=== PATIENT | female | born 1945 | race Caucasian/White ===

== ENCOUNTER → 2018-05-15 | Outpatient (CLI) | payer MEDICARE, OTHER ==
[~2018-05-15] MED LIST: ALLO100 PO; ALUMAGSIMA PO; AMLO5 PO; AMOCLA875 PO; AREDS EYE SUPPLEMENT; AREDS PO; ASPI81CH; ASPI81CH PO; ASPI81EC; ASPI81EC PO; ATOR20 PO; ATOR80 PO; AZILSARTAN PO; CALGLU500; CEPH500 PO; CHOL10002 PO; CHONDROITIN PO; CLOBETTC TP; CLON.2 PO; CLON.3 PO; CLOP75 PO; Calcitriol0.25 MCG PO; EDARBI; ERGO400 PO; FISH1000 PO; FURO40 PO; GLIM4 PO; GLUCOSAMINE PO; HYDCHL25 PO; Humalog100 UNIT/1; INSULANI SUBQ; INSULANPEN SC; IRBE150 PO; IRBE75; ISOMON60ER PO; Isosorbide Mono60 MG PO; LEVSOD25 PO; LIRA0.6P; LISHYD2025; LISI20 PO; LOSA50 PO; METF500 PO; METO25 PO; METO50 PO; MULVITA; MULVITA PO; MULVITMIND PO; MULVITMINF PO; Metoprolol Tart50 MG PO; PANT40 PO; PIOG15; POLY500 PO; Plavix75 MG PO; SYNTHROID25 MCG PO; WARF2.5 PO; WARF5 PO; [UNRECOGNIZED DRUG - OTHER]; [UNRECOGNIZED DRUG - OTHER] PO
[2018-05-15 13:03] LABS: Free Thyroxine 1.07 ng/dL (0.70-1.60)
[2018-05-15 13:21] LABS: Thyroid Stimulating Hormone 1.82 uIU/mL (0.360-4.800)
== END ==
LOC: LAB 12:27 → LAB SHORT 12:27
PROVIDERS: Internal Medicine Hematology & Oncology
DX: D51.8 Other vitamin B12 deficiency anemias (principal); E04.1 Nontoxic single thyroid nodule; E03.9 Hypothyroidism, unspecified; D50.9 Iron deficiency anemia, unspecified
CPT/HCPCS: 82607; 82746; 83540; 83550; 84439; 84443

== ENCOUNTER → 2018-06-22 | Outpatient (CLI) | payer MEDICARE, OTHER | LOC: LAB SHORT 13:04 → LAB EV 13:04 | DX: M79.644 Pain in right finger(s) (principal) | CPT/HCPCS: 84550 ==

== ENCOUNTER 2018-10-20 22:18 | Inpatient (IN) | payer MEDICARE, OTHER ==
[~2018-10-20] VITALS: Ht 162.6 cm; Wt 101.3 kg
[~2018-10-20 22:18] MED LIST changes: -ATOR20 PO; +CLON.1 PO; -CLON.2 PO; +Metoprolol Tar100 MG PO; -Metoprolol Tart50 MG PO
[2018-10-20] MEDS ORDERED: TRADJENTA5 MG PO (22:41)
[2018-10-20] MEDS ORDERED: WARF4 PO (22:41)
[2018-10-20] MEDS ORDERED: Novolog100 UNIT/2 SC (22:42)
[2018-10-20] MEDS ORDERED: RAYALDEE30 MCG PO (22:45)
[2018-10-20 22:57] LABS: BASOPHILS ABSOLUTE AUTO 0.03 K/mm3 (0.00-0.23); BASOPHILS PERCENT AUTO 0 % (0-2); EOSINOPHILS ABSOLUTE AUTO 0.08 K/mm3 (0.00-0.68); EOSINOPHILS PERCENT AUTO 1 % (0-6); Hemoglobin 11.9 g/dL (11.5-16.0); IMMATURE GRAN ABSOLUTE AUTO 0.06 K/mm3 (0.00-0.10); IMMATURE GRAN PERCENT AUTO 1 % (0-1); LYMPHOCYTES ABSOLUTE AUTO 0.51 K/mm3 (0.84-5.20); LYMPHOCYTES PERCENT AUTO 4 % (21-46); MONOCYTES PERCENT AUTO 6 % (4-13); Mean Corpuscular HGB Conc 32.2 g/dL (31.5-36.5); Mean Corpuscular Volume 100 fL (80-100); Mean Platelet Volume 10.4 fL (9.1-12.4); NEUTROPHILS ABSOLUTE AUTO 11.28 K/mm3 (1.96-9.15); NEUTROPHILS PERCENT AUTO 89 % (41-73); Platelet Count 195 K/mm3 (150-400); RDW Coefficient Variation 14.5 % (11.7-14.2); RDW Standard Deviation 52.5 fL (35.1-46.3); Red Blood Cell Count 3.72 M/mm3 (3.80-5.20); White Blood Cell Count 12.66 K/mm3 (4.00-11.30)
[2018-10-20 23:04] LABS: Source, Urine Catheter
[2018-10-20 23:07] LABS: Appearance, Urine Hazy (Clear); Bilirubin, Urine Neg (Neg); Blood, Urine 3+ (Neg); Color, Urine Yellow (P-Yellow); Glucose Qualitative, Urine Neg (Neg); Ketones, Urine Neg (Neg); Leukocyte Esterase, Urine 3+ (Neg); Nitrite, Urine Pos (Neg); Protein, Urine 3+ (Neg); Urobilinogen, Urine NORM (Normal)
[2018-10-20 23:12] LABS: Bacteria Many /hpf; Red Blood Cells, Urine 0-2 /hpf (0-2); Squamous Epithelial Cells Rare /hpf (Few); White Blood Cells, Urine TNTC /hpf (0-5)
[2018-10-20 23:18] LABS: Albumin, Blood 3.2 g/dL (3.4-5.0); Albumin/Globulin Ratio 0.7 (0.8-1.8); Bilirubin, Total 0.6 mg/dL (0.1-1.0); Calcium, Blood 8.2 mg/dL (8.5-10.1); Creatinine, Blood 1.25 mg/dL (0.40-1.00); Globulin, Blood 4.6 g/dL (2.2-4.0); Potassium, Blood 4.3 mmol/L (3.5-5.5); Total Protein, Blood 7.8 g/dL (6.4-8.2)
[2018-10-21] MEDS ORDERED: INSULANPEN SC (03:08)
[2018-10-21 04:58] LABS: BASOPHILS ABSOLUTE AUTO 0.02 K/mm3 (0.00-0.23); BASOPHILS PERCENT AUTO 0 % (0-2); EOSINOPHILS ABSOLUTE AUTO 0.01 K/mm3 (0.00-0.68); EOSINOPHILS PERCENT AUTO 0 % (0-6); Hematocrit 32.3 % (33.0-51.0); Hemoglobin 10.3 g/dL (11.5-16.0); IMMATURE GRAN PERCENT AUTO 1 % (0-1); LYMPHOCYTES PERCENT AUTO 7 % (21-46); MONOCYTES ABSOLUTE AUTO 1.12 K/mm3 (0.16-1.47); MONOCYTES PERCENT AUTO 7 % (4-13); Mean Corpuscular HGB 31.6 pg (26.0-34.0); Mean Corpuscular HGB Conc 31.9 g/dL (31.5-36.5); Mean Corpuscular Volume 99 fL (80-100); Mean Platelet Volume 10.5 fL (9.1-12.4); NEUTROPHILS ABSOLUTE AUTO 13.88 K/mm3 (1.96-9.15); NEUTROPHILS PERCENT AUTO 85 % (41-73); Platelet Count 166 K/mm3 (150-400); RDW Coefficient Variation 14.6 % (11.7-14.2); RDW Standard Deviation 53.5 fL (35.1-46.3); Red Blood Cell Count 3.26 M/mm3 (3.80-5.20); White Blood Cell Count 16.33 K/mm3 (4.00-11.30)
--- NOTE | 2018-10-21 05:08 | NUR ---
LANTUS HAS ONLY JUST ARRIVED FROM PHARMACY SO PLAN TO HOLD HS LANTUS DOSE OF 50 UNITS D/T AM DOSE OF 10 UNITS BEING DUE AT 0730. PHARMACY IS ALSO QUESTIONING ACCURACY OF ORDER SO PLAN TO HAVE DAY RN F/U W/PT'S AND/OR HOME PHARMACY FOR FURTHER CLARIFICATION.
--- NOTE | 2018-10-21 05:17 | NUR ---
ER T/F AND SUMMARY: PT T/F VIA W/C TO ROOM 308 AT 0255. SHE T/F'D SELF TO BED AND WAS NOTED TO GET MILDLY SOB W/EXERTION. SHE'S ADMITTED W/UTI AND PROBABLE UROSEPSIS W/NEUROGENIC BLADDER AT BASELINE. SHE LACKS SENSATION AND SO UTI SYMPTOMS ARE DIFFICULT TO DECIPHER. CONTACTED FOR NEW ORDERS. VEGAN ADA DIET COMMENCED BUT RECOMMENDED PT BE CONSERVATIVE W/PO INTAKE D/T HX CHF, NO FR ORDERED AT THIS TIME BUT DAY STAFF COULD F/U ON THIS. ATTENDS WERE CHANGED D/T PT ALWAYS "DRIBBLING" POST BLADDER RECONSTRUCTION FOLLOWING BLADDER CANCER. SHE ADMITS THAT ABDO FEELS DISTENDED AND SHE'S PASSING FLATUS BUT DENIED ABDO PAIN AND N/V. ROCEPHIN RECIEVED IN ER AND MD RX'D IT TO BE CONT'D DAILY. PT WAS SL UPON ARRIVAL BUT HAD 1L NS BOLUS IN ER COMPLETED. AM LABS RX'D, RESULTS PENDING. CBG'S STABLE AT 190'S-200'S AND INSULIN RX'D PER PT'S STATED HOME DOSES BUT PHARMACIST (FLACO COLES) Q'D ACCURACY. PT SEEMS TO BE ACCURATE HISTORIAN AND KNOW MEDS WELL BUT FURTHER CLARIFICATION IS RECOMMENDED, WILL ENSURE DAY RN AWARE. PT IS A/O, SBA TO BSC AND CALLS APPROPRIATELY. SHE HAS DENIED NEEDS/COMPLAINTS SINCE ADMISSION. VSS/AFEBRILE. WILL MONITOR AND REPORT TO DAY RN.
[2018-10-21 05:37] LABS: Bun/Creatinine Ratio 26.2 (12.0-20.0); Calcium, Blood 7.3 mg/dL (8.5-10.1); Creatinine, Blood 1.45 mg/dL (0.40-1.00); Potassium, Blood 4.4 mmol/L (3.5-5.5)
[2018-10-21] MEDS ORDERED: CYAN500 PO (09:56)
[2018-10-21] MEDS ORDERED: IRON150C PO (09:57)
[2018-10-21] MEDS ORDERED: VIT1CAPS12 PO (09:59)
[2018-10-21 10:30] LABS: International Normalized Ratio 2.66; Prothrombin Time Results 25.8 Sec (9.7-11.5)
--- NOTE | 2018-10-21 13:50 | NUR ---
PT GAVE VERBAL CONSENT FOR ME TO TREAT ON 10-22-2018.
--- NOTE | 2018-10-21 17:55 | NUR ---
ALERT, ORIENTED. STS FEELING BETTER TODAY. AMBULATORY IN ROOM TO BATHROOM. IV PATENT. PLEASANT. COOPERATIVE. UNLABORED RESPIRATIONS. AWARE OF POS BLD CULTURES. ABLE TO MAKE NEEDS KNOWN. BED IN LOW POSITION. CALL LIGHT WITHIN REACH.WILL CONTINUE TO MONITOR.
--- NOTE | 2018-10-22 04:34 | NUR ---
SUMMARY: A/OX4, CALLS APPROPRIATELY AND INDEPENDENT IN ROOM. PT ADMITS TO FEELING MUCH BETTER AND DENIES PAIN/SOB AND ALL OTHER COMPLAINTS. PT CHANGED ATTENDS AD SALLY FOR INCONTINENCE ISSUES POST BLADDER RECONSTRUCTION. SHE CONT'S SL BETWEEN DAILY IV ABX FOR UROSEPSIS. SHE TOLERATED HOME CPAP AT HS AND DOESN'T REQUIRE CONT BIOX PER ORDERS. NO ACUTE CHANGES, VSS AND AFEBRILE. WILL MONITOR AND REPORT TO DAY RN.
[2018-10-22 05:25] LABS: BASOPHILS ABSOLUTE AUTO 0.03 K/mm3 (0.00-0.23); BASOPHILS PERCENT AUTO 0 % (0-2); EOSINOPHILS ABSOLUTE AUTO 0.18 K/mm3 (0.00-0.68); EOSINOPHILS PERCENT AUTO 2 % (0-6); Hematocrit 34.6 % (33.0-51.0); Hemoglobin 10.9 g/dL (11.5-16.0); IMMATURE GRAN ABSOLUTE AUTO 0.04 K/mm3 (0.00-0.10); IMMATURE GRAN PERCENT AUTO 0 % (0-1); LYMPHOCYTES ABSOLUTE AUTO 1.15 K/mm3 (0.84-5.20); LYMPHOCYTES PERCENT AUTO 10 % (21-46); MONOCYTES ABSOLUTE AUTO 0.97 K/mm3 (0.16-1.47); MONOCYTES PERCENT AUTO 9 % (4-13); Mean Corpuscular HGB 32.2 pg (26.0-34.0); Mean Corpuscular HGB Conc 31.5 g/dL (31.5-36.5); Mean Corpuscular Volume 102 fL (80-100); Mean Platelet Volume 10.7 fL (9.1-12.4); NEUTROPHILS ABSOLUTE AUTO 8.78 K/mm3 (1.96-9.15); NEUTROPHILS PERCENT AUTO 79 % (41-73); Platelet Count 172 K/mm3 (150-400); RDW Coefficient Variation 14.8 % (11.7-14.2); RDW Standard Deviation 55.2 fL (35.1-46.3); Red Blood Cell Count 3.39 M/mm3 (3.80-5.20); White Blood Cell Count 11.15 K/mm3 (4.00-11.30)
[2018-10-22 05:38] LABS: International Normalized Ratio 2.69; Prothrombin Time Results 26.1 Sec (9.7-11.5)
[2018-10-22 05:50] LABS: Bun/Creatinine Ratio 27.7 (12.0-20.0); Calcium, Blood 8.3 mg/dL (8.5-10.1); Creatinine, Blood 1.3 mg/dL (0.40-1.00); Potassium, Blood 4.1 mmol/L (3.5-5.5)
--- NOTE | 2018-10-22 11:55 | NUR ---
Patient gave permission for me to care for her tomorrow 10/23/18
--- NOTE | 2018-10-22 18:19 | NUR ---
PATIENT ALERT AND ORIENTED. FEELING MUCH BETTER TODAY. PLEASANT. TALKATIVE. DENIES PAIN. UNLABORED RESPIRATIONS. VSS. IV PATENT. AMBULATORY W/STEADY GAIT IN ROOM. BED IN LOW POSITION. USES CALL LIGHT APPROPRIATELY. WILL CONTINUE TO MONITOR.
--- NOTE | 2018-10-23 03:37 | NUR ---
SHIFT SUMMARY PATIENT HAD NO ACUTE CHANGES OBSERVED DURING THE SHIFT. AXO X4 AND SBA TO BR. DENIES PAIN, SOB, AND N/V. PIV REMAINS INTACT. CBG 239. VSS/AFEBRILE. COOPERATIVE WITH CARE. REPORTS LIKING TO WATCH TV GAME SHOWS. HOME CPAP AND NO CONT BIOX PER ORDER. CALL LIGHT IN REACH. BED IN LOWEST POSITION. WILL CONTINUE TO MONITOR UNTIL DAY SHIFT NURSE ASSUMES CARE.
[2018-10-23 05:54] LABS: International Normalized Ratio 2.36; Prothrombin Time Results 23.1 Sec (9.7-11.5)
[2018-10-23] MEDS ORDERED: HUMALOG KW200 UNIT/1 (10:00)
[2018-10-23] MEDS ORDERED: LEVFLO500 PO (10:02)
--- NOTE | 2018-10-23 11:23 | NUR ---
DISCHARGE NOTE PATIENT EDUCATION GIVEN. VERBALIZED UNDERSTANDING. ALL QUESTIONS ANSWERED. IV ACCESS REMOVED CATHETER INTACT. LEAVING VIA PERSONAL CAR WITH . PATIENT REQUESTED TO WALK TO PERSONAL VEHICLE.
== END 2018-10-23 11:49 | disposition home or self-care (01) | DRG 872 ==
LOC: ER 22:18 → MEDS 10-21 02:28
PROVIDERS: Emergency Medicine; Hospitalist; ADMIT Family Medicine
DX: A41.51 Sepsis due to Escherichia coli [E. coli] (principal); N17.9 Acute kidney failure, unspecified; N30.01 Acute cystitis with hematuria; I13.0 Hypertensive heart and chronic kidney disease with heart failure and stage 1 through stage 4 chronic kidney disease, or unspecified chronic kidney disease; N39.0 Urinary tract infection, site not specified; R65.20 Severe sepsis without septic shock; E11.65 Type 2 diabetes mellitus with hyperglycemia; I50.9 Heart failure, unspecified; N18.9 Chronic kidney disease, unspecified; I48.91 Unspecified atrial fibrillation; I25.10 Atherosclerotic heart disease of native coronary artery without angina pectoris; E78.5 Hyperlipidemia, unspecified; E03.9 Hypothyroidism, unspecified; Z88.1 Allergy status to other antibiotic agents; Z88.5 Allergy status to narcotic agent; Z88.0 Allergy status to penicillin; Z79.01 Long term (current) use of anticoagulants; Z79.4 Long term (current) use of insulin; Z79.899 Other long term (current) drug therapy; Z86.73 Personal history of transient ischemic attack (TIA), and cerebral infarction without residual deficits; Z87.440 Personal history of urinary (tract) infections; Z87.891 Personal history of nicotine dependence
CPT/HCPCS: 36415; 51701; 71046; 80048; 80053; 81001; 82947; 83605; 85025; 85610; 87040; 87077; 87086; 87186; 94660; 94762; 96361; 96365; 99285-25; A9270; G0378; J0696; J7030; J7050

== ENCOUNTER → 2019-12-30 | Outpatient (CLI) | payer MEDICARE, OTHER ==
[~2019-12-30] MED LIST changes: +CYAN500 PO; +HUMALOG KW200 UNIT/1; +IRON150C PO; +LEVFLO500 PO; +Novolog100 UNIT/2 SC; +RAYALDEE30 MCG PO; +TRADJENTA5 MG PO; +VIT1CAPS12 PO; +WARF4 PO
[2019-12-30 15:32] LABS: Bun/Creatinine Ratio 25.4 (12.0-20.0); Creatinine, Blood 1.97 mg/dL (0.40-1.00)
== END | disposition home or self-care (01) ==
LOC: LAB SHORT 13:57 → LAB 13:57
PROVIDERS: Hospitalist
DX: E11.51 Type 2 diabetes mellitus with diabetic peripheral angiopathy without gangrene (principal); N25.9 Disorder resulting from impaired renal tubular function, unspecified; I10 Essential (primary) hypertension
CPT/HCPCS: 80048; 83036

== ENCOUNTER 2020-03-10 06:12 | Day surgery (SDC) | payer MEDICARE, OTHER ==
[~2020-03-10] VITALS: Ht 162.6 cm; Wt 100.0 kg
[~2020-03-10 06:12] MED LIST changes: +COLCRYS0.6 M1 PO; +FLAXSEED PO; +NITR.4SL SL
--- NOTE | 2020-03-10 08:35 | NUR ---
PT DISCHARGE INSTRUCTIONS FAXED TO [facility]. PT DIALYSIS CATHETER MAY BE USED FROM HERE ON OUT. PT SITE REMAINS CLEAR. NO BLEEDING NOTED.
--- NOTE | 2020-03-10 09:45 | NUR ---
PT SUTURES REMOVED FROM TOP R IJ SITE. NEW DOT DRESSING APPLIED. NO BLEEDING NOTED. VSS. NADN. PT DENIES NEEDS. CALL LIGHT WITHIN REACH.
--- NOTE | 2020-03-10 10:19 | NUR ---
PT DRESSES SELF WITH MINIMAL ASSISTANCE. PT VERBALIZES UNDERSTANDING WRITTEN AND VERBAL ORDERS. SITE REMAINS CLEAR. GREGORION. VSS. PT ESCORTED OUT TO WAITING AREA VIA S/O BY JAROCHO.
== END 2020-03-10 10:25 | disposition home or self-care (01) ==
LOC: MHTC 06:12
DX: I12.0 Hypertensive chronic kidney disease with stage 5 chronic kidney disease or end stage renal disease (principal); E11.22 Type 2 diabetes mellitus with diabetic chronic kidney disease; N18.6 End stage renal disease; Z87.891 Personal history of nicotine dependence; E78.5 Hyperlipidemia, unspecified; D63.1 Anemia in chronic kidney disease; E66.01 Morbid (severe) obesity due to excess calories; Z88.0 Allergy status to penicillin; Z88.5 Allergy status to narcotic agent; Z79.4 Long term (current) use of insulin; Z79.01 Long term (current) use of anticoagulants; Z79.899 Other long term (current) drug therapy; I48.91 Unspecified atrial fibrillation; Z86.73 Personal history of transient ischemic attack (TIA), and cerebral infarction without residual deficits; Z98.890 Other specified postprocedural states; Z85.51 Personal history of malignant neoplasm of bladder; Z68.39 Body mass index [BMI] 39.0-39.9, adult
CPT/HCPCS: 36558; 76937; 99152; C1750; C1769; C1894; J1644; J2250; J2405; J3010; J7030; J7040

== ENCOUNTER 2020-06-12 09:07 | Emergency (ER) | payer MEDICARE, OTHER ==
[~2020-06-12] VITALS: Ht 162.6 cm; Wt 100.7 kg
[~2020-06-12 09:07] MED LIST changes: +METO5 PO; +Midodrine HCl5 MG PO; +RANEXA500 MG PO; +RANOLAZINE ER1000 M1 PO; +TOUJEO MAX300 UNIT/2 SC
[2020-06-12 10:25] LABS: BASOPHILS ABSOLUTE AUTO 0.04 K/mm3 (0.00-0.23); BASOPHILS PERCENT AUTO 0 % (0-2); EOSINOPHILS ABSOLUTE AUTO 0.22 K/mm3 (0.00-0.68); EOSINOPHILS PERCENT AUTO 2 % (0-6); Hematocrit 30.2 % (33.0-51.0); Hemoglobin 9.6 g/dL (11.5-16.0); IMMATURE GRAN ABSOLUTE AUTO 0.08 K/mm3 (0.00-0.10); IMMATURE GRAN PERCENT AUTO 1 % (0-1); LYMPHOCYTES ABSOLUTE AUTO 1.13 K/mm3 (0.84-5.20); LYMPHOCYTES PERCENT AUTO 10 % (21-46); MONOCYTES ABSOLUTE AUTO 1.13 K/mm3 (0.16-1.47); MONOCYTES PERCENT AUTO 10 % (4-13); Mean Corpuscular HGB 31.2 pg (26.0-34.0); Mean Corpuscular HGB Conc 31.8 g/dL (31.5-36.5); Mean Corpuscular Volume 98 fL (80-100); Mean Platelet Volume 10.9 fL (9.1-12.4); NEUTROPHILS PERCENT AUTO 78 % (41-73); Platelet Count 196 K/mm3 (150-400); RDW Coefficient Variation 16.4 % (11.7-14.2); RDW Standard Deviation 58.2 fL (35.1-46.3); Red Blood Cell Count 3.08 M/mm3 (3.80-5.20)
[2020-06-12 10:44] LABS: Albumin, Blood 2.7 g/dL (3.4-5.0); Albumin/Globulin Ratio 0.5 (0.8-1.8); Bilirubin, Total 0.7 mg/dL (0.1-1.0); Bun/Creatinine Ratio 23.8 (12.0-20.0); Creatinine, Blood 2.77 mg/dL (0.40-1.00); Potassium, Blood 3.6 mmol/L (3.5-5.5); Total Protein, Blood 7.7 g/dL (6.4-8.2)
[2020-06-12 10:59] LABS: Calcium, Blood 5.7 mg/dL (8.5-10.1)
--- NOTE | 2020-06-12 13:05 | NUR ---
DIALYSIS - ED CALLED TO ED TO CHECK A PERMACATH THAT IS BLEEDING AND THE CUFF IS COMPLETELY OUT. CLEANED REDRESSED AND TAPED IT DOWN WELL. THE VENOUS PORT ASPIRATES REALLY WELL. THE ART DOES NOT. BUT IT DOES FLUSH VERY WELL. SO DIALYSIS CAN BE DONE USING THE PORT. INSTRUCTED HER AND THAT IF IT FALLS OUT, IT IS NOT AN EMERGENCY UNLESS IT IS BLEEDING. ALSO TOLD HER TO KEEP IT CLEAN WITH A DRESSING TO PREVENT INFECTION. SHE HAS AN APPT WITH DR ROCHA SATURDAY FOR A FISTULA PLACEMENT. TOLD HER TO CONTACT [facility] TO MAKE SURE DR ROCHA KNOWS HE SHOULD ALSO REPLACE THE PERMACATH.
--- NOTE | 2020-06-12 13:17 | NUR ---
DIALYSIS-PD NOTIFIED DR CASE BY PHONE THAT THE PT'S PERMACATH NEEDS TO BE REPLACED. THAT IT DOES FUNCTION. THAT THE PT HAS AN APPT ON SAT WITH JOSEFINA FOR A FISTULA PLACEMENT AND FARTUN NEEDS TO LET HIM KNOW TO REPLACE THE CATH.
== END 2020-06-12 13:15 | disposition home or self-care (01) ==
LOC: ER 09:07
PROVIDERS: Emergency Medicine
DX: T82.42XA Displacement of vascular dialysis catheter, initial encounter (principal); E11.22 Type 2 diabetes mellitus with diabetic chronic kidney disease; N18.6 End stage renal disease; Z99.2 Dependence on renal dialysis; I48.91 Unspecified atrial fibrillation; E78.5 Hyperlipidemia, unspecified; I25.10 Atherosclerotic heart disease of native coronary artery without angina pectoris; E03.9 Hypothyroidism, unspecified; Z87.891 Personal history of nicotine dependence; Z88.0 Allergy status to penicillin; Z88.5 Allergy status to narcotic agent; Z79.4 Long term (current) use of insulin; Z79.899 Other long term (current) drug therapy; Z79.01 Long term (current) use of anticoagulants; Z79.02 Long term (current) use of antithrombotics/antiplatelets; Z86.73 Personal history of transient ischemic attack (TIA), and cerebral infarction without residual deficits
CPT/HCPCS: 36415; 71045; 80053; 85025; 96365; 96366; 99284-25; J7030

== ENCOUNTER 2020-06-20 12:06 | Emergency (ER) | payer MEDICARE, OTHER ==
[~2020-06-20] VITALS: Ht 162.6 cm; Wt 99.8 kg
[2020-06-20 13:19] LABS: BASOPHILS ABSOLUTE AUTO 0.03 K/mm3 (0.00-0.23); BASOPHILS PERCENT AUTO 0 % (0-2); EOSINOPHILS ABSOLUTE AUTO 0.15 K/mm3 (0.00-0.68); EOSINOPHILS PERCENT AUTO 1 % (0-6); Hematocrit 31.7 % (33.0-51.0); IMMATURE GRAN PERCENT AUTO 1 % (0-1); LYMPHOCYTES ABSOLUTE AUTO 0.99 K/mm3 (0.84-5.20); LYMPHOCYTES PERCENT AUTO 7 % (21-46); MONOCYTES ABSOLUTE AUTO 1.14 K/mm3 (0.16-1.47); MONOCYTES PERCENT AUTO 8 % (4-13); Mean Corpuscular HGB 30.3 pg (26.0-34.0); Mean Corpuscular HGB Conc 31.5 g/dL (31.5-36.5); Mean Corpuscular Volume 96 fL (80-100); NEUTROPHILS ABSOLUTE AUTO 11.75 K/mm3 (1.96-9.15); NEUTROPHILS PERCENT AUTO 83 % (41-73); Platelet Count 259 K/mm3 (150-400); RDW Coefficient Variation 16.7 % (11.7-14.2); RDW Standard Deviation 59.1 fL (35.1-46.3); White Blood Cell Count 14.16 K/mm3 (4.00-11.30)
[2020-06-20 14:10] LABS: Albumin, Blood 2.5 g/dL (3.4-5.0); Albumin/Globulin Ratio 0.5 (0.8-1.8); Bilirubin, Total 0.8 mg/dL (0.1-1.0); Bun/Creatinine Ratio 20.2 (12.0-20.0); Calcium, Blood 5.1 mg/dL (8.5-10.1); Creatinine, Blood 2.57 mg/dL (0.40-1.00); Globulin, Blood 5.1 g/dL (2.2-4.0); Total Protein, Blood 7.6 g/dL (6.4-8.2)
== END 2020-06-20 16:36 | disposition home or self-care (01) ==
LOC: ER 12:06
PROVIDERS: Emergency Medicine
DX: E83.51 Hypocalcemia (principal); E87.6 Hypokalemia; I48.91 Unspecified atrial fibrillation; I12.9 Hypertensive chronic kidney disease with stage 1 through stage 4 chronic kidney disease, or unspecified chronic kidney disease; E11.22 Type 2 diabetes mellitus with diabetic chronic kidney disease; N18.9 Chronic kidney disease, unspecified; I25.10 Atherosclerotic heart disease of native coronary artery without angina pectoris; E03.9 Hypothyroidism, unspecified; Z88.0 Allergy status to penicillin; Z88.5 Allergy status to narcotic agent; Z88.8 Allergy status to other drugs, medicaments and biological substances; Z79.01 Long term (current) use of anticoagulants; Z79.899 Other long term (current) drug therapy; Z79.4 Long term (current) use of insulin; Z79.02 Long term (current) use of antithrombotics/antiplatelets; Z86.73 Personal history of transient ischemic attack (TIA), and cerebral infarction without residual deficits; Z99.2 Dependence on renal dialysis
CPT/HCPCS: 36415; 80053; 85025; 93005; 93010; 96365; 99283-25; A9270; J0610

== ENCOUNTER 2020-06-29 12:22 | Emergency (ER) | payer MEDICARE, OTHER ==
[~2020-06-29] VITALS: Ht 162.6 cm; Wt 99.8 kg
[2020-06-29 14:20] LABS: BASOPHILS ABSOLUTE AUTO 0.04 K/mm3 (0.00-0.23); BASOPHILS PERCENT AUTO 0 % (0-2); EOSINOPHILS ABSOLUTE AUTO 0.21 K/mm3 (0.00-0.68); EOSINOPHILS PERCENT AUTO 2 % (0-6); Hematocrit 31.8 % (33.0-51.0); Hemoglobin 9.5 g/dL (11.5-16.0); IMMATURE GRAN ABSOLUTE AUTO 0.06 K/mm3 (0.00-0.10); IMMATURE GRAN PERCENT AUTO 1 % (0-1); LYMPHOCYTES ABSOLUTE AUTO 1.02 K/mm3 (0.84-5.20); LYMPHOCYTES PERCENT AUTO 8 % (21-46); MONOCYTES ABSOLUTE AUTO 0.93 K/mm3 (0.16-1.47); MONOCYTES PERCENT AUTO 8 % (4-13); Mean Corpuscular HGB Conc 29.9 g/dL (31.5-36.5); Mean Corpuscular Volume 97 fL (80-100); NEUTROPHILS ABSOLUTE AUTO 10.13 K/mm3 (1.96-9.15); NEUTROPHILS PERCENT AUTO 82 % (41-73); Platelet Count 359 K/mm3 (150-400); RDW Coefficient Variation 16.5 % (11.7-14.2); RDW Standard Deviation 59.1 fL (35.1-46.3); Red Blood Cell Count 3.28 M/mm3 (3.80-5.20); White Blood Cell Count 12.39 K/mm3 (4.00-11.30)
[2020-06-29 14:47] LABS: Albumin, Blood 2.5 g/dL (3.4-5.0); Albumin/Globulin Ratio 0.4 (0.8-1.8); Bilirubin, Total 0.8 mg/dL (0.1-1.0); Bun/Creatinine Ratio 29.7 (12.0-20.0); Calcium, Blood 5.2 mg/dL (8.5-10.1); Creatinine, Blood 2.22 mg/dL (0.40-1.00); Globulin, Blood 5.6 g/dL (2.2-4.0); Magnesium, Blood 0.9 mg/dL (1.6-2.4); Phosphorus, Blood 3.4 mg/dL (2.5-4.9); Potassium, Blood 3.7 mmol/L (3.5-5.5); Total Protein, Blood 8.1 g/dL (6.4-8.2)
[2020-06-29] MEDS ORDERED: Vitamin D2000 UNIT PO (21:40)
== END 2020-06-29 16:35 | disposition home or self-care (01) ==
LOC: ER 12:22
PROVIDERS: Physician Assistant
DX: E11.22 Type 2 diabetes mellitus with diabetic chronic kidney disease (principal); N18.6 End stage renal disease; E83.51 Hypocalcemia; E83.42 Hypomagnesemia; I48.91 Unspecified atrial fibrillation; I25.10 Atherosclerotic heart disease of native coronary artery without angina pectoris; E03.9 Hypothyroidism, unspecified; E78.5 Hyperlipidemia, unspecified; Z88.0 Allergy status to penicillin; Z88.5 Allergy status to narcotic agent; Z88.8 Allergy status to other drugs, medicaments and biological substances; Z79.4 Long term (current) use of insulin; Z79.899 Other long term (current) drug therapy; Z79.01 Long term (current) use of anticoagulants; Z79.02 Long term (current) use of antithrombotics/antiplatelets; Z99.2 Dependence on renal dialysis; Z86.73 Personal history of transient ischemic attack (TIA), and cerebral infarction without residual deficits; Z87.891 Personal history of nicotine dependence
CPT/HCPCS: 80053; 82330; 83735; 84100; 85025; 93005; 93010; 96365; 96367; 99283-25; J0610; J3475

== ENCOUNTER 2020-06-29 16:21 | Inpatient (IN) | payer MEDICARE, OTHER ==
[~2020-06-29] VITALS: Ht 162.6 cm; Wt 100.0 kg
[2020-06-29 19:41] LABS: Magnesium, Blood 1.6 mg/dL (1.6-2.4); Troponin I 0.057 ng/mL (0.000-0.040)
[2020-06-29 20:37] LABS: PCO2 Arterial 30.8 mmHg (35-45); PO2 Arterial 82.9 mmHg (80-100); pH Blood Arterial 7.35 (7.35-7.45)
[2020-06-29] MEDS ORDERED: Vitamin D2000 UNIT PO (21:40)
[2020-06-30 03:54] LABS: BASOPHILS ABSOLUTE AUTO 0.03 K/mm3 (0.00-0.23); BASOPHILS PERCENT AUTO 0 % (0-2); EOSINOPHILS ABSOLUTE AUTO 0.17 K/mm3 (0.00-0.68); EOSINOPHILS PERCENT AUTO 1 % (0-6); Hematocrit 29.9 % (33.0-51.0); Hemoglobin 9.2 g/dL (11.5-16.0); IMMATURE GRAN ABSOLUTE AUTO 0.07 K/mm3 (0.00-0.10); IMMATURE GRAN PERCENT AUTO 1 % (0-1); LYMPHOCYTES ABSOLUTE AUTO 0.82 K/mm3 (0.84-5.20); LYMPHOCYTES PERCENT AUTO 6 % (21-46); MONOCYTES ABSOLUTE AUTO 1.08 K/mm3 (0.16-1.47); MONOCYTES PERCENT AUTO 9 % (4-13); Mean Corpuscular HGB 29.3 pg (26.0-34.0); Mean Corpuscular HGB Conc 30.8 g/dL (31.5-36.5); Mean Corpuscular Volume 95 fL (80-100); Mean Platelet Volume 9.8 fL (9.1-12.4); NEUTROPHILS ABSOLUTE AUTO 10.61 K/mm3 (1.96-9.15); NEUTROPHILS PERCENT AUTO 83 % (41-73); Platelet Count 336 K/mm3 (150-400); RDW Coefficient Variation 16.4 % (11.7-14.2); RDW Standard Deviation 56.9 fL (35.1-46.3); Red Blood Cell Count 3.14 M/mm3 (3.80-5.20); White Blood Cell Count 12.78 K/mm3 (4.00-11.30)
[2020-06-30 04:25] LABS: Albumin, Blood 2.3 g/dL (3.4-5.0); Albumin/Globulin Ratio 0.4 (0.8-1.8); Bilirubin, Total 0.9 mg/dL (0.1-1.0); Bun/Creatinine Ratio 24.8 (12.0-20.0); Calcium, Blood 6.3 mg/dL (8.5-10.1); Creatinine, Blood 2.38 mg/dL (0.40-1.00); Globulin, Blood 5.3 g/dL (2.2-4.0); Magnesium, Blood 1.2 mg/dL (1.6-2.4); Phosphorus, Blood 3.5 mg/dL (2.5-4.9); Potassium, Blood 3.5 mmol/L (3.5-5.5); Total Protein, Blood 7.6 g/dL (6.4-8.2); Troponin I 0.104 ng/mL (0.000-0.040)
--- NOTE | 2020-06-30 06:23 | NUR ---
SUMMARY PT SLEPT MOST THE NIGHT. COOPERATIVE WITH CARE. STAND PIVOTS/FFW 1 PERSON ASSIST TO THE BEDSIDE COMMODE. WAS COMPLAINING OF SOB, REPOSITION SEEMED TO HELP, 02 SATS REMAINED INT THE UPPER 90s. PT DECIDED NOT TO WEAR CPAP BECAUSE THE MASK WAS UNCOMFORTABLE AND KEEPING HER FROM SLEEPING. VSS, NO ACUTE CHANGES OVERNIGHT. BED IN LOW POSITION AND CALL LIGHT IN REACH.
[2020-06-30 12:53] LABS: Hematocrit 30.6 % (33.0-51.0); Hemoglobin 9.5 g/dL (11.5-16.0)
[2020-06-30 13:03] LABS: Albumin, Blood 2.3 g/dL (3.4-5.0); Anion Gap 14 mmol/L (6-16); Blood Urea Nitrogen 57 mg/dL (8-24); CO2, Blood 17 mmol/L (21-32); Calcium, Blood 6.5 mg/dL (8.5-10.1); Chloride, Blood 109 mmol/L (98-108); Creatinine, Blood 2.11 mg/dL (0.40-1.00); Glomerular Filtration Rate 24 (60-); Glucose, Blood 279 mg/dL (70-99); Phosphorus, Blood 2.9 mg/dL (2.5-4.9); Potassium, Blood 3.7 mmol/L (3.5-5.5); Sodium, Blood 140 mmol/L (136-145)
[2020-06-30 14:59] LABS: International Normalized Ratio 1.94
[2020-06-30 16:08] LABS: Magnesium, Blood 1.3 mg/dL (1.6-2.4); Potassium, Blood 4.1 mmol/L (3.5-5.5)
--- NOTE | 2020-06-30 18:29 | NUR ---
SHIFT NOTE PT HAS BEEN UP TO BATHROOM SEVERAL TIMES TODAY, STEADY SINGLE PERSON TRANSFER WITH FWW. PT DOES REPORTS SOME SOB WITH AMBULATION BUT STS IS NOTHING NEW TO HER. PT DID CONVERT TO A-FIB WHILE WORKING WITH PT/OT TODAY, SHE DID NOT CONVERT OUT OF AFIB WHEN AT REST, DR BRASHER IS CALLED TO CONSULT. NEW ORDERS WERE PLACED TO MAINTAIN TELE AND REMAIN PCU STATUS.
--- NOTE | 2020-07-01 02:17 | NUR ---
HEART RHYTHM CONVERSION THIS RN NOTIFIED BY TELEMETRY AT APPROX 0200 THAT PT CONVERTED FROM AFIB TO SR. HR 95. EVENT STRIP PRINTED AND PLACE IN PT CHART. WILL CONTINUE TO MONITOR.
[2020-07-01 04:51] LABS: BASOPHILS ABSOLUTE AUTO 0.05 K/mm3 (0.00-0.23); BASOPHILS PERCENT AUTO 0 % (0-2); EOSINOPHILS ABSOLUTE AUTO 0.28 K/mm3 (0.00-0.68); EOSINOPHILS PERCENT AUTO 2 % (0-6); Hematocrit 30.9 % (33.0-51.0); Hemoglobin 9.6 g/dL (11.5-16.0); IMMATURE GRAN ABSOLUTE AUTO 0.06 K/mm3 (0.00-0.10); IMMATURE GRAN PERCENT AUTO 1 % (0-1); LYMPHOCYTES ABSOLUTE AUTO 1.19 K/mm3 (0.84-5.20); LYMPHOCYTES PERCENT AUTO 9 % (21-46); MONOCYTES ABSOLUTE AUTO 1.11 K/mm3 (0.16-1.47); MONOCYTES PERCENT AUTO 9 % (4-13); Mean Corpuscular HGB 29.4 pg (26.0-34.0); Mean Corpuscular HGB Conc 31.1 g/dL (31.5-36.5); Mean Corpuscular Volume 95 fL (80-100); Mean Platelet Volume 9.7 fL (9.1-12.4); NEUTROPHILS ABSOLUTE AUTO 10.06 K/mm3 (1.96-9.15); NEUTROPHILS PERCENT AUTO 79 % (41-73); Platelet Count 348 K/mm3 (150-400); RDW Coefficient Variation 16.2 % (11.7-14.2); RDW Standard Deviation 56.3 fL (35.1-46.3); Red Blood Cell Count 3.27 M/mm3 (3.80-5.20); White Blood Cell Count 12.75 K/mm3 (4.00-11.30)
[2020-07-01 05:11] LABS: International Normalized Ratio 1.76; Prothrombin Time Results 18.2 Sec (9.7-11.5)
[2020-07-01 05:23] LABS: Albumin, Blood 2.1 g/dL (3.4-5.0); Anion Gap 11 mmol/L (6-16); Blood Urea Nitrogen 61 mg/dL (8-24); Bun/Creatinine Ratio 29.2 (12.0-20.0); CO2, Blood 21 mmol/L (21-32); Chloride, Blood 108 mmol/L (98-108); Creatinine, Blood 2.09 mg/dL (0.40-1.00); Glomerular Filtration Rate 24 (60-); Glucose, Blood 181 mg/dL (70-99); Magnesium, Blood 1.4 mg/dL (1.6-2.4); Phosphorus, Blood 3.4 mg/dL (2.5-4.9); Potassium, Blood 3.5 mmol/L (3.5-5.5); Sodium, Blood 140 mmol/L (136-145)
--- NOTE | 2020-07-01 06:39 | NUR ---
SHIFT SUMMARY NO ACUTE CHANGES THIS SHIFT. PT A&O X4. SP02 >94% ON RA. PT WORE HOME CPAP WHILE SLEEPING T/O THE NIGHT. PT CONVERTED FROM AFIB TO SR DURING SHIFT, SEE PREVIOUS NOTE. PT HAD ELEVATED HR AT BEGINNING OF SHIFT. GAVE LOPRESSOR IV PUSH X1 PER EMAR FOR HR >120. PT R ARM FISTULA AND DIALYSIS CATHETER ON CHEST BOTH WNL. NO REDNESS OR SWELLING. PT HAD MULTIPLE INCONTINENT VOIDS THIS SHIFT. CLEAN\DRY ATTENDS IN PLACE. PT C/O OF MILD PAIN/TINGLING IN BOTH FEET. PT STATES THIS IS NOT A NEW OCCURANCE. CALL LIGHT WITHIN REACH. WILL CONTINUE TO MONITOR.
[2020-07-01] MEDS ORDERED: Calcium Carbon500 MG PO (12:20)
[2020-07-01] MEDS ORDERED: SODBIC650 PO (12:21)
[2020-07-01] MEDS ORDERED: BUME2 PO (12:22)
--- NOTE | 2020-07-01 12:45 | NUR ---
CALLED DR. BRASHER TO CLARIFY PATIENT'S RANEXA ORDER. NOTIFIED HER PATIENT TAKES RANEXA 500 MG PO BID AT HOME. DR. BRASHER ORDERED TO CHANGE RANEXA 150 MG PO BID TO RANEXA 500 MG PO BID ON THE DISCHARGE PAPERWORK.
--- NOTE | 2020-07-01 13:45 | NUR ---
DISCHARGE: PATIENT DISCHARGED HOME AT APPROX 1330. HER WAS GOING TO DRIVE HER HOME. REVIEWED DISCHARGE INSTRUCTIONS, DISCHARGE MEDS, AND FOLLOW UP APPOINTMENTS WITH PATIENT AND HER . MEDICATIONS CALLED TO [facility]. NO FURTHER QUESTIONS AT TIME OF DISCHARGE. PATIENT AWARE OF FISTULA RESTRICTIONS AND S/S TO MONITOR FOR.
== END 2020-07-01 13:33 | disposition home or self-care (01) | DRG 682 ==
LOC: MHTC 16:21 → PCU 18:23 → MHTC 22:01 → PCU 22:03
PROVIDERS: Family Medicine; Internal Medicine Nephrology; Nurse Practitioner Acute Care; ADMIT Internal Medicine
PROC: 0J2TXYZ Change Other Device in Trunk Subcutaneous Tissue and Fascia, External Approach (ICD-10-PCS; principal; 2020-06-29)
PROC: 3E0T3BZ Introduction of Anesthetic Agent into Peripheral Nerves and Plexi, Percutaneous Approach (ICD-10-PCS; 2020-06-29)
PROC: B5181ZA Fluoroscopy of Superior Vena Cava using Low Osmolar Contrast, Guidance (ICD-10-PCS; 2020-06-29)
DX: N17.9 Acute kidney failure, unspecified (principal); I50.31 Acute diastolic (congestive) heart failure; E87.2 Acidosis; I13.0 Hypertensive heart and chronic kidney disease with heart failure and stage 1 through stage 4 chronic kidney disease, or unspecified chronic kidney disease; E83.51 Hypocalcemia; R06.01 Orthopnea; E11.22 Type 2 diabetes mellitus with diabetic chronic kidney disease; E78.5 Hyperlipidemia, unspecified; G47.33 Obstructive sleep apnea (adult) (pediatric); Z79.01 Long term (current) use of anticoagulants; Z79.4 Long term (current) use of insulin; I25.10 Atherosclerotic heart disease of native coronary artery without angina pectoris; Z99.2 Dependence on renal dialysis; I48.0 Paroxysmal atrial fibrillation; K76.1 Chronic passive congestion of liver; D63.1 Anemia in chronic kidney disease; D72.829 Elevated white blood cell count, unspecified; E88.09 Other disorders of plasma-protein metabolism, not elsewhere classified; N18.6 End stage renal disease
CPT/HCPCS: 36415; 36581; 36600; 64415; 76937; 80053; 80069; 82330; 82803; 82947; 83735; 83880; 84100; 84132; 84484; 85014; 85018; 85025; 85610; 94660; 94762; 96365; 96366; 96367; 96372; 96375; 96376; 97116; 97162; 97166; 97530; 97535; 99152; 99153; A9270; A9270-GY; C1725; C1750; C1769; C1889; C1894; G0008; G0378; G2170; J0610; J0881; J1644; J2250; J3010; J3475; J7030; J7050; Q2038

== ENCOUNTER 2020-08-17 11:34 | Day surgery (SDC) | payer MEDICARE, OTHER ==
[~2020-08-17] VITALS: Ht 160 cm; Wt 101.0 kg
[~2020-08-17 11:34] MED LIST changes: +BUME2 PO; +Calcium Carbon500 MG PO; +Coumadin3 MG PO; +ISOSORBIDE MONO60 MG PO; +NOVOLOG FL100 UNIT/3; +SODBIC650 PO; +Vitamin D2000 UNIT PO
--- NOTE | 2020-08-17 19:44 | NUR ---
DISCHARGE INSTRUCTIONS AND PRECAUTIONS GIVEN TO PATIENT AND . PATIENT DRESSED AT BEDSIDE WITH STANDBY ASSIST FROM . IV SITE DCED WITH CATHETER INTACT. TR BAND REMOVED AND SOFT DOT DRESSING APPLIED. SITE SOFT AND NONTENDER. WRIST BOARD PLACED TO RIGHT WRIST AND ARM SLING TO RIGHT ARM. PATIENT AND HUSBANDS QUESTIONS ANSWERED. PATIENT TAKEN BY WHEEL CHAIR BY ARLENE LEIGH. PATIENT HOME WITH .
== END 2020-08-17 19:40 | disposition home or self-care (01) ==
LOC: MHTC 11:34
DX: Z49.01 Encounter for fitting and adjustment of extracorporeal dialysis catheter (principal); I12.0 Hypertensive chronic kidney disease with stage 5 chronic kidney disease or end stage renal disease; E11.22 Type 2 diabetes mellitus with diabetic chronic kidney disease; N18.6 End stage renal disease; D63.1 Anemia in chronic kidney disease; E55.9 Vitamin D deficiency, unspecified; I25.10 Atherosclerotic heart disease of native coronary artery without angina pectoris; E78.5 Hyperlipidemia, unspecified; M19.90 Unspecified osteoarthritis, unspecified site; I48.91 Unspecified atrial fibrillation; G47.30 Sleep apnea, unspecified; E66.01 Morbid (severe) obesity due to excess calories; Z68.39 Body mass index [BMI] 39.0-39.9, adult; Z86.73 Personal history of transient ischemic attack (TIA), and cerebral infarction without residual deficits; Z87.891 Personal history of nicotine dependence; Z88.0 Allergy status to penicillin; Z88.5 Allergy status to narcotic agent; Z91.048 Other nonmedicinal substance allergy status; Z79.01 Long term (current) use of anticoagulants; Z79.4 Long term (current) use of insulin; Z79.02 Long term (current) use of antithrombotics/antiplatelets; Z79.899 Other long term (current) drug therapy
CPT/HCPCS: 36902; 75710; 76937; 82947; 99152; 99153; C1725; C1769; C1887; C1894; J1644; J2250; J3010; J7030; Q9967

== ENCOUNTER 2020-09-21 11:25 | Day surgery (SDC) | payer MEDICARE, OTHER ==
[~2020-09-21] VITALS: Ht 157.5 cm; Wt 104.1 kg
[~2020-09-21 11:25] MED LIST changes: +Isosorbide Mono30 MG PO; +NOVOLOG FL100 UNIT/3 SC; +TOUJEO SOL300 UNIT/2 SC
== END 2020-09-21 15:45 | disposition home or self-care (01) ==
LOC: MHTC 11:25
DX: Z49.01 Encounter for fitting and adjustment of extracorporeal dialysis catheter (principal); I13.2 Hypertensive heart and chronic kidney disease with heart failure and with stage 5 chronic kidney disease, or end stage renal disease; E11.22 Type 2 diabetes mellitus with diabetic chronic kidney disease; N18.6 End stage renal disease; I50.9 Heart failure, unspecified; D63.1 Anemia in chronic kidney disease; I48.91 Unspecified atrial fibrillation; I25.10 Atherosclerotic heart disease of native coronary artery without angina pectoris; E78.5 Hyperlipidemia, unspecified; E66.9 Obesity, unspecified; M19.90 Unspecified osteoarthritis, unspecified site; G47.30 Sleep apnea, unspecified; E55.9 Vitamin D deficiency, unspecified; Z86.73 Personal history of transient ischemic attack (TIA), and cerebral infarction without residual deficits; Z87.891 Personal history of nicotine dependence; Z88.5 Allergy status to narcotic agent; Z88.0 Allergy status to penicillin; Z79.4 Long term (current) use of insulin; Z79.02 Long term (current) use of antithrombotics/antiplatelets; Z79.01 Long term (current) use of anticoagulants; Z79.899 Other long term (current) drug therapy; Z68.41 Body mass index [BMI] 40.0-44.9, adult; Z20.828 Contact with and (suspected) exposure to other viral communicable diseases
CPT/HCPCS: 76937; 99152; 99153; C1725; C1769; C1887; C1894; J1644; J2250; J3010; J7030; J7040; Q9967

== ENCOUNTER 2020-10-13 15:23 | Day surgery (SDC) | payer MEDICARE, OTHER ==
[~2020-10-13] VITALS: Ht 162.6 cm; Wt 103.4 kg
[2020-10-13] MEDS ORDERED: PRESERVISION A1 EACH PO (16:10)
--- NOTE | 2020-10-13 17:00 | NUR ---
PATIENT RETURNED TO [facility] RECOVERY ROOM. A&O. TOLERATED PROCEDURE WELL.
--- NOTE | 2020-10-13 17:29 | NUR ---
PATIENT VERBALIZED UNDERSTANDING OF DISCHARGE INSTRUCTIONS AND PRECAUTIONS. DRESSING D&I TO RIGHT UPPER CHEST WALL. DISCHARGED HOME. TRANSFERRED VIA WHEELCHAIR TO WAITING CAR WITH .
[2020-10-18] MEDS ORDERED: RANO500T PO (13:42)
== END 2020-10-13 22:37 | disposition home or self-care (01) ==
LOC: MHTC 15:23
DX: T82.43XA Leakage of vascular dialysis catheter, initial encounter (principal); I12.0 Hypertensive chronic kidney disease with stage 5 chronic kidney disease or end stage renal disease; E11.22 Type 2 diabetes mellitus with diabetic chronic kidney disease; N18.6 End stage renal disease; D64.9 Anemia, unspecified; E66.9 Obesity, unspecified; Z68.41 Body mass index [BMI] 40.0-44.9, adult; M19.90 Unspecified osteoarthritis, unspecified site; E55.9 Vitamin D deficiency, unspecified; Z87.891 Personal history of nicotine dependence; Z88.0 Allergy status to penicillin; Z88.1 Allergy status to other antibiotic agents; Z88.5 Allergy status to narcotic agent; Z79.4 Long term (current) use of insulin; Y84.1 Kidney dialysis as the cause of abnormal reaction of the patient, or of later complication, without mention of misadventure at the time of the procedure
CPT/HCPCS: 36581; 77001; 82947; C1750; C1769; J1644; J7050

== ENCOUNTER 2020-10-19 11:00 | Day surgery (SDC) | payer MEDICARE, OTHER ==
[~2020-10-19] VITALS: Ht 160 cm; Wt 104.0 kg
[~2020-10-19 11:00] MED LIST changes: +PRESERVISION A1 EACH PO; +RANO500T PO
--- NOTE | 2020-10-19 16:01 | NUR ---
PT ATE ALL LUNCH, IV DC'D INTACT, DRESSING/ACCESS BRACHIAL SITE STABLE, PT DRESSED, DC'D BY WC BY THIS RN, DRIVING PT HOME
== END 2020-10-19 16:00 | disposition home or self-care (01) ==
LOC: MHTC 11:00
DX: I13.2 Hypertensive heart and chronic kidney disease with heart failure and with stage 5 chronic kidney disease, or end stage renal disease (principal); E11.22 Type 2 diabetes mellitus with diabetic chronic kidney disease; N18.6 End stage renal disease; I48.91 Unspecified atrial fibrillation; I50.9 Heart failure, unspecified; E66.9 Obesity, unspecified; G47.30 Sleep apnea, unspecified; M19.90 Unspecified osteoarthritis, unspecified site; E78.5 Hyperlipidemia, unspecified; I70.90 Unspecified atherosclerosis; Z99.2 Dependence on renal dialysis; Z86.73 Personal history of transient ischemic attack (TIA), and cerebral infarction without residual deficits; Z95.5 Presence of coronary angioplasty implant and graft; Z90.710 Acquired absence of both cervix and uterus; Z96.641 Presence of right artificial hip joint; Z87.891 Personal history of nicotine dependence; Z88.6 Allergy status to analgesic agent; Z88.0 Allergy status to penicillin; Z79.4 Long term (current) use of insulin; Z79.899 Other long term (current) drug therapy; Z79.01 Long term (current) use of anticoagulants; Z68.41 Body mass index [BMI] 40.0-44.9, adult
CPT/HCPCS: 36901; 36909; 82947; 99152; 99153; C1887; C1894; J1644; J2250; J3010; J7030; Q9967

== ENCOUNTER 2021-04-07 15:59 | Emergency (ER) | payer MEDICARE, OTHER ==
[~2021-04-07] VITALS: Ht 162.6 cm; Wt 94.3 kg
[2021-04-07 16:23] LABS: BASOPHILS ABSOLUTE AUTO 0.04 K/mm3 (0.00-0.23); BASOPHILS PERCENT AUTO 0 % (0-2); EOSINOPHILS ABSOLUTE AUTO 0.22 K/mm3 (0.00-0.68); EOSINOPHILS PERCENT AUTO 3 % (0-6); Hematocrit 31.2 % (33.0-51.0); Hemoglobin 9.7 g/dL (11.5-16.0); IMMATURE GRAN ABSOLUTE AUTO 0.07 K/mm3 (0.00-0.10); IMMATURE GRAN PERCENT AUTO 1 % (0-1); LYMPHOCYTES ABSOLUTE AUTO 1.61 K/mm3 (0.84-5.20); LYMPHOCYTES PERCENT AUTO 18 % (21-46); MONOCYTES ABSOLUTE AUTO 0.82 K/mm3 (0.16-1.47); MONOCYTES PERCENT AUTO 9 % (4-13); Mean Corpuscular HGB 31.1 pg (26.0-34.0); Mean Corpuscular HGB Conc 31.1 g/dL (31.5-36.5); Mean Corpuscular Volume 100 fL (80-100); Mean Platelet Volume 10.1 fL (9.1-12.4); NEUTROPHILS ABSOLUTE AUTO 6.21 K/mm3 (1.96-9.15); NEUTROPHILS PERCENT AUTO 69 % (41-73); Platelet Count 260 K/mm3 (150-400); RDW Coefficient Variation 17.2 % (11.7-14.2); RDW Standard Deviation 62.4 fL (35.1-46.3); Red Blood Cell Count 3.12 M/mm3 (3.80-5.20); White Blood Cell Count 8.97 K/mm3 (4.00-11.30)
[2021-04-07 16:49] LABS: Albumin/Globulin Ratio 0.6 (0.8-1.8); Bilirubin, Total 0.5 mg/dL (0.1-1.0); Bun/Creatinine Ratio 12.4 (12.0-20.0); Calcium, Blood 8.5 mg/dL (8.5-10.1); Creatinine, Blood 3.88 mg/dL (0.40-1.00); Globulin, Blood 4.9 g/dL (2.2-4.0); Potassium, Blood 5.7 mmol/L (3.5-5.5); Total Protein, Blood 7.9 g/dL (6.4-8.2)
[2021-04-07 17:17] LABS: International Normalized Ratio 2.8; Prothrombin Time Results 28.5 Sec (9.7-11.5)
== END 2021-04-07 21:38 | disposition home or self-care (01) ==
LOC: ER 15:59
PROVIDERS: Emergency Medicine
DX: I95.9 Hypotension, unspecified (principal); I12.9 Hypertensive chronic kidney disease with stage 1 through stage 4 chronic kidney disease, or unspecified chronic kidney disease; E11.22 Type 2 diabetes mellitus with diabetic chronic kidney disease; N18.9 Chronic kidney disease, unspecified; I48.91 Unspecified atrial fibrillation; Z88.0 Allergy status to penicillin; Z88.5 Allergy status to narcotic agent; Z79.899 Other long term (current) drug therapy; W01.198A Fall on same level from slipping, tripping and stumbling with subsequent striking against other object, initial encounter
CPT/HCPCS: 70450; 72100; 80053; 85025; 85610; 93005; 93010; 96374; 96375; 99285-25; A9270; J2405; J3010

== ENCOUNTER 2021-06-29 16:04 | Inpatient (IN) | payer MEDICARE, OTHER ==
[~2021-06-29] VITALS: Ht 162.6 cm; Wt 110.3 kg
[2021-06-29 17:08] LABS: BASOPHILS ABSOLUTE AUTO 0.03 K/mm3 (0.00-0.23); BASOPHILS PERCENT AUTO 0 % (0-2); EOSINOPHILS ABSOLUTE AUTO 0.18 K/mm3 (0.00-0.68); EOSINOPHILS PERCENT AUTO 2 % (0-6); Hematocrit 27.9 % (33.0-51.0); Hemoglobin 8.7 g/dL (11.5-16.0); IMMATURE GRAN ABSOLUTE AUTO 0.08 K/mm3 (0.00-0.10); IMMATURE GRAN PERCENT AUTO 1 % (0-1); LYMPHOCYTES ABSOLUTE AUTO 0.87 K/mm3 (0.84-5.20); LYMPHOCYTES PERCENT AUTO 9 % (21-46); MONOCYTES PERCENT AUTO 2 % (4-13); Mean Corpuscular HGB 30.1 pg (26.0-34.0); Mean Corpuscular HGB Conc 31.2 g/dL (31.5-36.5); Mean Corpuscular Volume 97 fL (80-100); Mean Platelet Volume 10.1 fL (9.1-12.4); NEUTROPHILS ABSOLUTE AUTO 8.56 K/mm3 (1.96-9.15); NEUTROPHILS PERCENT AUTO 86 % (41-73); Platelet Count 316 K/mm3 (150-400); RDW Coefficient Variation 18.6 % (11.7-14.2); RDW Standard Deviation 65.8 fL (35.1-46.3); Red Blood Cell Count 2.89 M/mm3 (3.80-5.20); White Blood Cell Count 9.92 K/mm3 (4.00-11.30)
[2021-06-29 17:17] LABS: Anion Gap 7 mmol/L (6-16); Blood Urea Nitrogen 69 mg/dL (8-24); CO2, Blood 30 mmol/L (21-32); Calcium, Blood 7.8 mg/dL (8.5-10.1); Chloride, Blood 100 mmol/L (98-108); Creatinine, Blood 4.94 mg/dL (0.40-1.00); Glomerular Filtration Rate 8 (60-); Glucose, Blood 177 mg/dL (70-99); Magnesium, Blood 1.6 mg/dL (1.6-2.4); Potassium, Blood 4.5 mmol/L (3.5-5.5); Sodium, Blood 137 mmol/L (136-145); Troponin I <0.015 ng/mL (0.000-0.040)
[2021-06-29 20:09] LABS: SARS-Cov-2 (COVID-19) PCR, MMC NEGATIVE (NEGATIVE)
[2021-06-29 21:20] LABS: International Normalized Ratio 1.98; Prothrombin Time Results 19.9 Sec (9.7-11.5)
[2021-06-30 04:51] LABS: BASOPHILS ABSOLUTE AUTO 0.04 K/mm3 (0.00-0.23); BASOPHILS PERCENT AUTO 0 % (0-2); EOSINOPHILS ABSOLUTE AUTO 0.32 K/mm3 (0.00-0.68); EOSINOPHILS PERCENT AUTO 3 % (0-6); Hemoglobin 8.1 g/dL (11.5-16.0); IMMATURE GRAN ABSOLUTE AUTO 0.07 K/mm3 (0.00-0.10); IMMATURE GRAN PERCENT AUTO 1 % (0-1); LYMPHOCYTES ABSOLUTE AUTO 1.03 K/mm3 (0.84-5.20); LYMPHOCYTES PERCENT AUTO 10 % (21-46); MONOCYTES ABSOLUTE AUTO 0.78 K/mm3 (0.16-1.47); MONOCYTES PERCENT AUTO 8 % (4-13); Mean Corpuscular HGB 29.3 pg (26.0-34.0); Mean Corpuscular Volume 98 fL (80-100); Mean Platelet Volume 10.1 fL (9.1-12.4); NEUTROPHILS ABSOLUTE AUTO 8.03 K/mm3 (1.96-9.15); NEUTROPHILS PERCENT AUTO 78 % (41-73); Platelet Count 285 K/mm3 (150-400); RDW Coefficient Variation 18.8 % (11.7-14.2); RDW Standard Deviation 66.7 fL (35.1-46.3); Red Blood Cell Count 2.76 M/mm3 (3.80-5.20); White Blood Cell Count 10.27 K/mm3 (4.00-11.30)
[2021-06-30 05:05] LABS: International Normalized Ratio 1.89
[2021-06-30 05:11] LABS: Anion Gap 8 mmol/L (6-16); Blood Urea Nitrogen 79 mg/dL (8-24); Bun/Creatinine Ratio 13.7 (12.0-20.0); CO2, Blood 29 mmol/L (21-32); Calcium, Blood 7.2 mg/dL (8.5-10.1); Chloride, Blood 103 mmol/L (98-108); Creatinine, Blood 5.78 mg/dL (0.40-1.00); Glomerular Filtration Rate 7 (60-); Glucose, Blood 145 mg/dL (70-99); Potassium, Blood 4.7 mmol/L (3.5-5.5); Sodium, Blood 140 mmol/L (136-145); Troponin I <0.015 ng/mL (0.000-0.040)
--- NOTE | 2021-06-30 17:45 | NUR ---
SHIFT SUMMARY PT IS AOX4 AND PLEASANT. PT DENIES PAIN, N/V. PT C/O SOB AFTER DIALYSIS TODAY AND REMAINS ON 3 L O2 VIA NC WITH SATS 100%. PT TELE RUNNING NSR UNTIL THIS JELANI AFTER DIALYSIS WHERE PT IS SINUS TACHYCARDIA 130-140S. DR. GOOD IS AWARE AND METOPROLOL ORDERS ARE PENDING. PT'S VISITED THIS JELANI DURING VISITING HOURS. PT APPETITE IS GOOD. PT HAD ECHO PROCEDURE THIS AM. PT IS SBA/ONE PERSON FOR TRANSFERS IN ROOM. PT UP TO CHAIR AND COMMODE T/O SHIFT. PT IS IN BED, CALL LIGHT IN REACH, LOW POSITION.
[2021-07-01 04:45] LABS: Hemoglobin 8.8 g/dL (11.5-16.0)
[2021-07-01 04:59] LABS: International Normalized Ratio 1.83; Prothrombin Time Results 18.5 Sec (9.7-11.5)
[2021-07-01 05:06] LABS: Albumin, Blood 2.4 g/dL (3.4-5.0); Anion Gap 10 mmol/L (6-16); Blood Urea Nitrogen 54 mg/dL (8-24); Bun/Creatinine Ratio 11.6 (12.0-20.0); CO2, Blood 28 mmol/L (21-32); Chloride, Blood 97 mmol/L (98-108); Creatinine, Blood 4.65 mg/dL (0.40-1.00); Glomerular Filtration Rate 9 (60-); Glucose, Blood 164 mg/dL (70-99); Magnesium, Blood 1.6 mg/dL (1.6-2.4); Phosphorus, Blood 4.9 mg/dL (2.5-4.9); Potassium, Blood 4.1 mmol/L (3.5-5.5); Sodium, Blood 135 mmol/L (136-145)
--- NOTE | 2021-07-01 16:08 | NUR ---
SHIFT SUMMARY PT IS AOX4 AND PLEASANT. PT DENIES PAIN, N/V, SOB. PT REMAINS ON 3 L 02 VIA NC WITH SATS GREATER THAN 90%. PT APPETITE IS GOOD. PT HAD DIALYSIS TODAY. TELE RUNNING AFIB TODAY BUT UNDER 100 AFTER METOPROLOL DOSING. PT IS ONE ASSIST IN ROOM. PT HAS BEGINNINGS OF SHINGLES ON RIGHT BACK, UNOPENED, AND THIS RN PLACED A PRECUATIONARY DRESSING OVER RASH TO MONITOR PROGRESS DAILY. PT FAMILY TO ROOM THIS JELANI. PT IS IN BED, CALL LIGHT IN REACH, LOW POSITION.
[2021-07-02 04:42] LABS: Hematocrit 28.6 % (33.0-51.0); Hemoglobin 8.8 g/dL (11.5-16.0)
[2021-07-02 04:57] LABS: Albumin, Blood 2.3 g/dL (3.4-5.0); Anion Gap 9 mmol/L (6-16); Blood Urea Nitrogen 65 mg/dL (8-24); Bun/Creatinine Ratio 12.3 (12.0-20.0); CO2, Blood 27 mmol/L (21-32); Calcium, Blood 7.7 mg/dL (8.5-10.1); Chloride, Blood 100 mmol/L (98-108); Creatinine, Blood 5.28 mg/dL (0.40-1.00); Glomerular Filtration Rate 8 (60-); Glucose, Blood 156 mg/dL (70-99); Magnesium, Blood 1.5 mg/dL (1.6-2.4); Phosphorus, Blood 6.4 mg/dL (2.5-4.9); Potassium, Blood 4.2 mmol/L (3.5-5.5); Sodium, Blood 136 mmol/L (136-145)
[2021-07-02 05:16] LABS: International Normalized Ratio 1.85; Prothrombin Time Results 18.7 Sec (9.7-11.5)
--- NOTE | 2021-07-02 16:46 | NUR ---
SHIFT SUMMARY PT IS AOX4. PT DENIES PAIN, N/V, SOB. PT IS ON RA WITH SATS GREATER THAN 99%. PT TELE RUNNING AFIB 80S, BUT 150+ DURING A TRIP TO THE BATHROOM THIS SHIFT. PT DID NOT HAVE DIALYSIS TODAY. PT CBG STABLE, VSS. PT HAD VISITOR THIS SHIFT. PT IS IN BED, CALL LIGHT IN REACH, LOW POSITION.
[2021-07-03 04:39] LABS: Hematocrit 28.3 % (33.0-51.0); Hemoglobin 8.6 g/dL (11.5-16.0)
[2021-07-03 04:54] LABS: International Normalized Ratio 1.86; Prothrombin Time Results 18.8 Sec (9.7-11.5)
[2021-07-03 05:08] LABS: Albumin, Blood 2.3 g/dL (3.4-5.0); Anion Gap 14 mmol/L (6-16); Blood Urea Nitrogen 79 mg/dL (8-24); Bun/Creatinine Ratio 14.3 (12.0-20.0); CO2, Blood 20 mmol/L (21-32); Calcium, Blood 7.8 mg/dL (8.5-10.1); Chloride, Blood 103 mmol/L (98-108); Creatinine, Blood 5.52 mg/dL (0.40-1.00); Glomerular Filtration Rate 7 (60-); Glucose, Blood 178 mg/dL (70-99); Magnesium, Blood 1.8 mg/dL (1.6-2.4); Phosphorus, Blood 5.3 mg/dL (2.5-4.9); Potassium, Blood 4.9 mmol/L (3.5-5.5); Sodium, Blood 137 mmol/L (136-145)
--- NOTE | 2021-07-03 06:04 | NUR ---
END OF SHIFT SUMMARY: Pt A&Ox4. Denies pain, SOB, nausea. Uneventful night. On Room air sats >95% AFib on monitor averaging 91BPM per telephone maintainer. HR up to 150's with activity. Vitals stable. Resting at this time. Call light within reach. Bed in lowest position.
[2021-07-03] MEDS ORDERED: VALA500 PO (15:17)
--- NOTE | 2021-07-03 15:28 | NUR ---
Pt. is doing much better encouraged pt. and offered prayers.
--- NOTE | 2021-07-03 17:13 | NUR ---
DISCHARGED HOME with family, removed tele and IV with no difficulty, Dr. Sherman came to to assess pt and asked that she make an appointment with his office, rn was unable to contact office due to phone issues, pt agreed to contact office and make an appointment, discussed dc medications, pt has an appointment to see pcp 07/04, encouraged her to follow instructions and to make and keep appointments, pushed pt's wc to car and assisted her into passenger seat
== END 2021-07-03 16:01 | disposition home or self-care (01) | DRG 291 ==
LOC: ER 16:04 → MEDS 20:45 → ER 22:30 → ENPENDDIS 07-03 14:48 → MEDS 07-03 16:01
PROVIDERS: Internal Medicine Nephrology; Student in an Organized Health Care Education/Training Program; ADMIT Family Medicine
DX: I13.0 Hypertensive heart and chronic kidney disease with heart failure and stage 1 through stage 4 chronic kidney disease, or unspecified chronic kidney disease (principal); J96.01 Acute respiratory failure with hypoxia; N18.6 End stage renal disease; I50.33 Acute on chronic diastolic (congestive) heart failure; N25.81 Secondary hyperparathyroidism of renal origin; I48.19 Other persistent atrial fibrillation; E87.1 Hypo-osmolality and hyponatremia; E83.42 Hypomagnesemia; Z20.822 Contact with and (suspected) exposure to COVID-19; E11.22 Type 2 diabetes mellitus with diabetic chronic kidney disease; I48.0 Paroxysmal atrial fibrillation; E78.5 Hyperlipidemia, unspecified; E03.9 Hypothyroidism, unspecified; D63.1 Anemia in chronic kidney disease; I25.10 Atherosclerotic heart disease of native coronary artery without angina pectoris; B02.9 Zoster without complications; E66.01 Morbid (severe) obesity due to excess calories; I27.20 Pulmonary hypertension, unspecified; Z96.643 Presence of artificial hip joint, bilateral; Z99.89 Dependence on other enabling machines and devices; Z68.39 Body mass index [BMI] 39.0-39.9, adult; Z86.73 Personal history of transient ischemic attack (TIA), and cerebral infarction without residual deficits; Z99.2 Dependence on renal dialysis; Z90.89 Acquired absence of other organs; Z90.710 Acquired absence of both cervix and uterus; Z98.890 Other specified postprocedural states; Z88.0 Allergy status to penicillin; Z88.6 Allergy status to analgesic agent; Z79.4 Long term (current) use of insulin; Z79.01 Long term (current) use of anticoagulants; Z79.899 Other long term (current) drug therapy
CPT/HCPCS: 36415; 71046; 80048; 80069; 82947; 83735; 83880; 84145; 84484; 85014; 85018; 85025; 85610; 93005; 93010; 93306; 94762; 96365; 99285-25; A9270; J0696; J0881; J1815; J3475; U0004